=== PATIENT | female | born 1955 | race Caucasian/White ===

== ENCOUNTER 2023-03-02 15:17 | Inpatient (IN) | payer BC ==
[~2023-03-02] VITALS: Ht 167.6 cm; Wt 99.5 kg
[2023-03-02 15:58] LABS: ALANINE AMINOTRANSFERASE 66 U/L (12-78); ALBUMIN 3.5 G/DL (3.4-5.0); ALBUMIN/GLOBULIN RATIO 1.2 (1.1-1.5); ALKALINE PHOSPHATASE 65 IU/L (46-116); ANION GAP 11 (8-16); ASPARTATE AMINO TRANSFERASE 42 U/L (10-37); BILIRUBIN,TOTAL 0.4 MG/DL (0.1-1.0); BLOOD UREA NITROGEN 16 MG/DL (7-18); BUN/CREATININE RATIO 13.1 (10.0-20.0); CHLORIDE 105 MMOL/L (99-107); CREATININE 1.22 MG/DL (0.40-0.90); GLUCOSE 97 MG/DL (70-104); POTASSIUM 3.9 MMOL/L (3.5-5.1); SODIUM 140 MMOL/L (135-145); TOTAL CARBON DIOXIDE 24.5 MMOL/L (24-32); TOTAL PROTEIN 6.5 G/DL (6.4-8.2); eGFR 44 ML/MIN
[2023-03-02 16:07] LABS: MAGNESIUM 1.8 MG/DL (1.5-2.4)
[2023-03-02 16:12] LABS: BASOPHILS # (AUTO) 0.1 X10'3 (0-0.2); BASOPHILS % (AUTO) 0.7 % (0-1); EOSINOPHILS # (AUTO) 0.4 X10'3 (0-0.9); EOSINOPHILS % (AUTO) 4.2 % (0-6); HEMATOCRIT 41.4 % (35.0-45.0); HEMOGLOBIN 13.9 g/dl (12.0-16.0); LARGE PLATELETS MODERATE; LYMPHOCYTES % (AUTO) 30.3 % (21-51); MEAN CORPUSCULAR HEMOGLOBIN 30.3 PG (27.0-31.0); MEAN CORPUSCULAR HGB CONC 33.5 g/dL (33.0-36.5); MEAN CORPUSCULAR VOLUME 90.5 FL (78-98); MEAN PLATELET VOLUME 11.6 FL (7.4-10.4); NEUTROPHILS # (AUTO) 5.4 X10'3 (1.8-7.7); NEUTROPHILS % (AUTO) 54.8 % (42-75); PLATELET COUNT 150 X10'3 (140-440); PLATELET ESTIMATE NORMAL; RED BLOOD COUNT 4.58 X10'6 (4.20-5.60); RED CELL DISTRIBUTION WIDTH 13.8 % (11.5-14.5); WHITE BLOOD COUNT 9.8 X10'3 (4.5-11.0)
[2023-03-02 16:13] LABS: BURR CELLS FEW
[2023-03-02] MEDS ORDERED: furosemide 10 MG/1 ML 10ml inj IV ONE (16:20)
[2023-03-02] MEDS ORDERED: furosemide 20MG tablet PO ONE (16:25)
[2023-03-02] MEDS ORDERED: iohexol 350MG/ML 100ml bottle IV ONE (16:37)
[2023-03-02] MEDS ORDERED: NO HOME MEDS (18:40)
[2023-03-02] MEDS ORDERED: diphenhydrAMINE 50 mg/ml inj IV PRN (20:10)
[2023-03-02] MEDS ORDERED: diphenhydrAMINE 25mg capsule PO PRN (20:10)
[2023-03-02] MEDS ORDERED: HYDROcodone/acetaminophen 5mg/325mg tablet PO PRN (20:10)
[2023-03-02] MEDS ORDERED: ondansetron 4mg rapidly disintigrating tab PO PRN (20:10)
[2023-03-02] MEDS ORDERED: bisacodyl 10mg suppository rectal RC PRN (20:10)
[2023-03-02] MEDS ORDERED: ondansetron/PF 4mg/2ml inj IV PRN (20:10)
[2023-03-02] MEDS ORDERED: acetaminophen 325mg tablet PO PRN ×2 (20:10)
[2023-03-02] MEDS ORDERED: morphine 2 MG/ML inj. syringe IV PRN (20:10)
[2023-03-02] MEDS ORDERED: mag hydrox/Alum hydrox/simeth 30ml oral suspension PO PRN (20:10)
[2023-03-02] MEDS ORDERED: magnesium hydroxide 30ml (MOM) UD suspension PO PRN (20:10)
[2023-03-02 20:34] LABS: HEMOGLOBIN A1C 5.9 % (4.5-6.2)
[2023-03-02 20:47] LABS: CREATINE KINASE 338 U/L (26-192); LIPASE 62 U/L (73-393); PHOSPHORUS 4.1 MG/DL (2.3-4.5)
[2023-03-02 20:56] LABS: APTT 27 SECONDS (22-32)
[2023-03-02] MEDS ORDERED: temazepam 15mg capsule PO PRN (21:00)
[2023-03-02 22:55] VITALS: BP 106/70
--- NOTE | 2023-03-02 23:20 | NUR ---
Patient in room [id number]. I have received report from ABRAHAM BRICENO IN ER and had the opportunity to ask questions and assume patient care.
[2023-03-03] MEDS: diltiazem 30mg tablet PO SCH ×2 (02:22→08:49)
[2023-03-03 06:00] VITALS: BP 128/65
--- NOTE | 2023-03-03 06:34 | NUR ---
Problems reprioritized. Patient report given, questions answered & plan of care reviewed with CIELO BRICENO.
[2023-03-03 06:36] LABS: EOSINOPHILS # (AUTO) 0.4 X10'3 (0-0.9); MEAN CORPUSCULAR VOLUME 90.6 FL (78-98)
[2023-03-03 06:39] LABS: BASOPHILS % (AUTO) 0.2 % (0-1); EOSINOPHILS % (AUTO) 4.6 % (0-6); HEMATOCRIT 39.1 % (35.0-45.0); HEMOGLOBIN 12.9 g/dl (12.0-16.0); LYMPHOCYTES # (AUTO) 2.7 X10'3 (1.1-4.8); LYMPHOCYTES % (AUTO) 29.5 % (21-51); MEAN CORPUSCULAR HGB CONC 33.1 g/dL (33.0-36.5); MEAN PLATELET VOLUME 12.3 FL (7.4-10.4); MONOCYTES % (AUTO) 10.6 % (2-12); NEUTROPHILS % (AUTO) 55.1 % (42-75); PLATELET COUNT 138 X10'3 (140-440); RED BLOOD COUNT 4.32 X10'6 (4.20-5.60); RED CELL DISTRIBUTION WIDTH 13.7 % (11.5-14.5)
[2023-03-03 06:57] LABS: ALANINE AMINOTRANSFERASE 59 U/L (12-78); ALBUMIN 3.1 G/DL (3.4-5.0); ALBUMIN/GLOBULIN RATIO 1.1 (1.1-1.5); ALKALINE PHOSPHATASE 56 IU/L (46-116); ANION GAP 10 (8-16); ASPARTATE AMINO TRANSFERASE 36 U/L (10-37); BILIRUBIN,TOTAL 0.4 MG/DL (0.1-1.0); BLOOD UREA NITROGEN 23 MG/DL (7-18); BUN/CREATININE RATIO 29.1 (10.0-20.0); CALCIUM 8.9 MG/DL (8.5-10.1); CHLORIDE 105 MMOL/L (99-107); CHOL/HDL RATIO 3.7 (0.00-4.99); CHOLESTEROL 163 MG/DL (0-200); CREATININE 0.79 MG/DL (0.40-0.90); GLUCOSE 85 MG/DL (70-104); HDL CHOLESTEROL 44 MG/DL (35-60); LDL CHOLESTEROL 105 MG/DL (50-100); POTASSIUM 3.6 MMOL/L (3.5-5.1); SODIUM 143 MMOL/L (135-145); TOTAL CARBON DIOXIDE 27.8 MMOL/L (24-32); TOTAL PROTEIN 5.9 G/DL (6.4-8.2); TRIGLYCERIDES 68 MG/DL (20-135); eGFR 72 ML/MIN
[2023-03-03] MEDS ORDERED: pantoprazole 40mg Tablet.DR PO SCH (07:30)
[2023-03-03] MEDS ORDERED: nitroGLYCERIN 0.1mg/hour patch TD SCH (08:00)
[2023-03-03] MEDS ORDERED: furosemide 10 MG/1 ML 10ml inj IV SCH (08:00)
[2023-03-03] MEDS ORDERED: atorvastatin 20mg tablet PO SCH (08:00)
[2023-03-03] MEDS ORDERED: HYDROchlorothiazide 25mg tablet PO SCH (08:00)
[2023-03-03] MEDS ORDERED: lisinopril 10 MG tablet PO SCH (08:00)
[2023-03-03] MEDS ORDERED: docusate sod 100mg capsule PO SCH (08:00)
[2023-03-03] MEDS ORDERED: enoxaparin 100mg/ml syringe SUBCUT SCH (08:00)
[2023-03-03] MEDS ORDERED: spironolactone 25 MG tablet PO SCH (08:30)
[2023-03-03] MEDS ORDERED: enoxaparin 60mg/0.6ml syringe SUBCUT SCH (09:00)
[2023-03-03] MEDS ORDERED: enoxaparin 30mg/0.3ml syringe SUBCUT SCH (09:00)
[2023-03-03 11:00] VITALS: BP 100/67
[2023-03-03] MEDS ORDERED: FURO-150 PO (13:27)
[2023-03-03] MEDS ORDERED: ATOR20TA66 PO (13:27)
[2023-03-03] MEDS ORDERED: CARV3.12 PO (13:27)
[2023-03-03] MEDS ORDERED: SPIR25TA PO ×2 (13:27)
[2023-03-03] MEDS ORDERED: POTA-206 PO (13:27)
[2023-03-03] MEDS ORDERED: LISI10TA27 PO (13:27)
[2023-03-03] MEDS ORDERED: APIX2.5T PO (14:15)
--- NOTE | 2023-03-03 15:45 | NUR ---
PT APPEARS APPROPRIATE FOR DISCHARGE. DISCHARGE INSTRUCTIONS GIVEN TO PT AND SPOUSE, PT EDUCATED ON DX AND MEDICATIONS. ALL QUESTIONS ADDRESSED. IV TAKEN OUT. PT HAS ALL HER BELONGINGS. COMPLETED PATIENT CARE WITH PRIMARY NURSE, CIELO BRICENO.
== END 2023-03-03 15:45 | disposition home or self-care (01) | DRG 292 ==
LOC: ER 15:18 → ED HOLD 20:14 → SUR 3N 22:43
PROVIDERS: ADMIT Family Medicine; ATTEND Internal Medicine
PROC: B32T1ZZ Computerized Tomography (CT Scan) of Left Pulmonary Artery using Low Osmolar Contrast (ICD-10-PCS; principal; 2023-03-02)
PROC: B3201ZZ Computerized Tomography (CT Scan) of Thoracic Aorta using Low Osmolar Contrast (ICD-10-PCS; 2023-03-02)
PROC: B32S1ZZ Computerized Tomography (CT Scan) of Right Pulmonary Artery using Low Osmolar Contrast (ICD-10-PCS; 2023-03-02)
DX: I50.33 Acute on chronic diastolic (congestive) heart failure (principal); N17.9 Acute kidney failure, unspecified; I48.91 Unspecified atrial fibrillation; N18.9 Chronic kidney disease, unspecified; R26.9 Unspecified abnormalities of gait and mobility; Z88.5 Allergy status to narcotic agent; Z79.899 Other long term (current) drug therapy
CPT/HCPCS: 36415; 71045; 71275; 80053; 80061; 82550; 83036; 83690; 83735; 83880; 84100; 84443; 84484; 85008; 85025; 85610; 85730; 87081; 93306; 99285; G0378; J1650; J1940; J3490; Q9967

== ENCOUNTER 2023-04-08 13:05 | Emergency (ER) | payer BC, MEDICARE ==
[~2023-04-08] VITALS: Ht 167.6 cm; Wt 98.0 kg
[~2023-04-08 13:05] MED LIST: APIX5TAB3 PO; ATOR20TA PO; CARV3.122 PO; FEXO180T94 PO; FLEC100T35; FURO20TA4 PO; POTA-192 PO
[2023-04-08 13:29] LABS: BASOPHILS % (AUTO) 0.6 % (0-1); EOSINOPHILS # (AUTO) 0.2 X10'3 (0-0.9); EOSINOPHILS % (AUTO) 2.2 % (0-6); HEMATOCRIT 46.2 % (35.0-45.0); HEMOGLOBIN 15.1 g/dl (12.0-16.0); LYMPHOCYTES # (AUTO) 2.7 X10'3 (1.1-4.8); LYMPHOCYTES % (AUTO) 37.3 % (21-51); MEAN CORPUSCULAR HEMOGLOBIN 29.2 PG (27.0-31.0); MEAN CORPUSCULAR HGB CONC 32.7 g/dL (33.0-36.5); MEAN CORPUSCULAR VOLUME 89.3 FL (78-98); MEAN PLATELET VOLUME 10.8 FL (7.4-10.4); MONOCYTES # (AUTO) 0.9 X10'3 (0-0.9); MONOCYTES % (AUTO) 11.7 % (2-12); NEUTROPHILS # (AUTO) 3.5 X10'3 (1.8-7.7); NEUTROPHILS % (AUTO) 48.2 % (42-75); PLATELET COUNT 154 X10'3 (140-440); RED BLOOD COUNT 5.17 X10'6 (4.20-5.60); RED CELL DISTRIBUTION WIDTH 14.1 % (11.5-14.5); WHITE BLOOD COUNT 7.3 X10'3 (4.5-11.0)
[2023-04-08 13:41] LABS: ALANINE AMINOTRANSFERASE 30 U/L (12-78); ALBUMIN 3.9 G/DL (3.4-5.0); ALBUMIN/GLOBULIN RATIO 1.2 (1.1-1.5); ALKALINE PHOSPHATASE 72 IU/L (46-116); ANION GAP 7 (8-16); ASPARTATE AMINO TRANSFERASE 21 U/L (10-37); BILIRUBIN,TOTAL 0.3 MG/DL (0.1-1.0); BLOOD UREA NITROGEN 18 MG/DL (7-18); BUN/CREATININE RATIO 25.7 (10.0-20.0); CALCIUM 9.2 MG/DL (8.5-10.1); CHLORIDE 104 MMOL/L (99-107); GLUCOSE 88 MG/DL (70-104); POTASSIUM 3.9 MMOL/L (3.5-5.1); SODIUM 138 MMOL/L (135-145); TOTAL CARBON DIOXIDE 26.7 MMOL/L (24-32); TOTAL PROTEIN 7.2 G/DL (6.4-8.2); eGFR 83 ML/MIN
[2023-04-08] MEDS ORDERED: meclizine 12.5mg tablet PO ONE (14:56)
[2023-04-08] MEDS ORDERED: MECL-231 PO (16:10)
[2023-04-08 16:19] VITALS: BP 119/67
== END 2023-04-08 16:21 | disposition home or self-care (01) ==
LOC: ER 13:06
DX: R42 Dizziness and giddiness (principal); I11.9 Hypertensive heart disease without heart failure; Z88.5 Allergy status to narcotic agent; Z79.899 Other long term (current) drug therapy
CPT/HCPCS: 36415; 80053; 83735; 83880; 84484; 85025; 93005; 99284; J8597